=== PATIENT | male | born 1970 | race Caucasian/White ===

== ENCOUNTER 2017-02-21 21:48 | Observation (INO) | payer OTHER, MEDICARE ==
--- NOTE | 2017-02-21 22:11 | ED ---
General Adult HPI - General Chief complaint: Extremity Injury, Upper Stated complaint: smashed finger Time Seen by Provider: 02/21/17 22:03 Source: patient, family, RN notes reviewed Mode of arrival: ambulatory Limitations: no limitations - History of Present Illness Initial comments: 47-year-old male presenting for left middle finger injury. Patient states he was cutting an exhaust pipe while working on his friend's car when it fell and smashed his finger upward between the newly cut end of the pipe and a hard piece of metal. He states he sustained a cut/crush injury to the tip of his left middle finger. States tetanus is up to date. Denies other injury. He does state history of a heart condition. He denies any chest pain or shortness of breath. - Related Data Home Medications Medication Instructions Recorded Confirmed Omeprazole [PriLOSEC] 20 mg PO AC-BRKFST 07/07/16 02/21/17 Lisinopril 40 mg PO DAILY 02/21/17 02/21/17 Allergies Allergy/AdvReac Type Severity Reaction Status Date / Time Penicillins Allergy Anaphylaxis Verified 02/21/17 22:06 Review of Systems ROS Statement: Those systems with pertinent positive or pertinent negative responses have been documented in the HPI. ROS Other: All systems not noted in ROS Statement are negative. Past Medical History Past Medical History: Hypertension History of Any Multi-Drug Resistant Organisms: None Reported Additional Past Surgical History / Comment(s): open heart x 6 Past Psychological History: No Psychological Hx Reported Smoking Status: Former smoker Past Alcohol Use History: None Reported Past Drug Use History: None Reported General Exam - General Exam Comments Initial Comments: General: Awake and Alert. No acute distress. Does not appear acutely ill. Eyes: SETH. No scleral icterus. HENT: Atraumatic, normocephalic. Mucous membranes moist. Neck: No JVD. Trachea midline. Cardiovascular: Regular rate and rhythm. No murmur, rub, or gallop is appreciated. Distal pulses intact. Respiratory: Lungs are clear to auscultation bilaterally. No wheezes, rales, rhonchi. No respiratory distress. Gastrointestinal: Soft, Nontender. Nondistended. Musculoskeletal: Left third distal phalanx with nail bed avulsion. There is laceration below the nail bed as well as on the palmar aspect of the distal phalanx. There is significant soft tissue edema associated with it. Does appear to have good extension and flexion and strength intact in this digit. Neurological: A&Ox3. There are no obvious motor or sensory deficits. Coordination appears grossly intact. Speech is normal. Skin: Skin is warm and dry. Laceration to the left third distal phalanx. Psychiatric: Cooperative, appropriate mood & affect, normal judgment. Limitations: no limitations Course Vital Signs 02/21/17 21:57 Temperature 98.7 F Pulse Rate 70 Respiratory 18 Rate Blood Pressure 153/70 O2 Sat by Pulse 98 Oximetry Procedures - Nerve Block Consent Obtained: verbal consent Time Out Performed: Yes Local Anesthetic Used: Lidocaine 1% Amount of anesthesia used: 5 Side: left Nerve Blocks: digital Procedure Successful: Yes Complications: none Patient Tolerated Procedure: well Medical Decision Making - Medical Decision Making 47-year-old male presenting for left third digit injury. Patient with significant crush injury and laceration to the distal phalanx. There is complete proximal avulsion of the nail bed. Pt initially declined pain medication. Digital block was performed with irrigation and superficial exploration. It appears that the proximal nailbed is obliterated secondary injury. X-ray imaging with evidence of open fracture and small metallic FBs retained. Patient was given a dose of gentamicin secondary to penicillin ALLERGY. I called and spoke with BRIDGET Gill for [facility]. He reviewed imaging and spoke with Dr. Biggs. Recommends admission to their service for surgical evaluation and possible partial proximal amputation in the morning. I discussed this with the patient and , they are are agreeable to this. - Radiology Data Radiology results: report reviewed, image reviewed Disposition Clinical Impression: Open fracture proximal phalanx finger, Nailbed avulsion, Metal foreign body in hand Disposition: ADMITTED IP TO THIS HOSP Condition: Stable Referrals: Nancy Benson DO [Primary Care Provider] - 1-2 days Decision to Admit Reason: Admit from EC
--- NOTE | 2017-02-21 22:42 | XR ---
EXAM: XR Left Hand Complete, 3 or More Views CLINICAL HISTORY: Reason: Pain TECHNIQUE: Frontal, lateral and oblique views of the left hand. COMPARISON: No relevant prior studies available. FINDINGS: Bones/joints: Comminuted tuft fracture of the third phalanx. Soft tissues: Retained radiopaque foreign bodies are seen with the largest measuring up to 3 mm. IMPRESSION: 1. Comminuted tuft fracture of the third phalanx. 2. Retained radiopaque foreign bodies are seen with the largest measuring up to 3 mm.
[2017-02-21] MEDS ORDERED: GENTAMICIN 160 MG in SODIUM CHLORIDE 0.9% 100 ML IVPB STA (23:32)
[2017-02-22] MEDS ORDERED: NALOXONE 0.4 MG/ML 1 ML VIAL IV PRN (00:13)
[2017-02-22] MEDS ORDERED: ACETAMINOPHEN TAB 325 MG TAB PO PRN (00:13)
[2017-02-22] MEDS ORDERED: MORPHINE SULFATE 4 MG/ML SYRINGE IV PRN (00:13)
[2017-02-22] MEDS ORDERED: ONDANSETRON 4 MG/2 ML VIAL IVP PRN (00:13)
[2017-02-22] MEDS: LACTATED RINGERS 1,000 ML IV SCH ×3 (01:36→12:45)
--- NOTE | 2017-02-22 09:39 | P.HPOR ---
History of Present Illness H&P Date: 02/22/17 Chief Complaint: Laceration/partial amputation distal phalanx left middle finger This is a 47-year-old male who was seen and evaluated in the emergency room and [facility] late last night. Patient had a injury to the left middle finger while working on a car exhaust pipe. Patient was cutting exhaust pipe when it fell, and smashed the left middle finger. Patient reported immediately to the emergency room. The ER physician further evaluate the laceration after digital block, he noted multiple lacerations, including the nailbed and also a avulsion of the nail itself. I was contacted by him last night and was able to review the case and images. I was able to further discuss the case in maintaining Dr. Biggs and review images. He was admitted under our orthopedic care with plan of a irrigation and debridement along with revision amputation of the distal phalanx of the left little finger on the morning of 02/22/2017. Patient was seen and evaluated today at bedside, Dr. Biggs was present. Patient's finger was heavily bandaged. He noted discomfort throughout the distal end with any kind of pressure. He denies any other discomfort of the left upper extremity, this including hand, wrist, elbow. Patient has no previous orthopedic surgery involving the left upper extremity. He does note a previous history of multiple open heart surgeries, he states roughly 6. Patient denies any chest pain, shortness of breath, lightheadedness, headaches, abdominal discomfort, nausea vomiting, fever chills. 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 Past Anesthesia/Blood Transfusion Reactions: No Reported Reaction Past Psychological History: No Psychological Hx Reported Smoking Status: Never smoker Past Alcohol Use History: None Reported Past Drug Use History: None Reported Medications and Allergies Home Medications Medication Instructions Recorded Confirmed Type Omeprazole [PriLOSEC] 20 mg PO AC-BRKFST 07/07/16 02/21/17 History Lisinopril 40 mg PO DAILY 02/21/17 02/21/17 History Allergies Allergy/AdvReac Type Severity Reaction Status Date / Time Penicillins Allergy Anaphylaxis Verified 06/13/17 22:06 Physical Examination Left upper extremity: Bulky bandage is present around the left middle finger, this was not removed today at bedside According to the emergency room physician notes, there are a few different lacerations on the palmar aspect of the left middle finger, and then the biggest of the lacerations extending from more the proximal nail bed. He noted areas of macerated skin and some edematous tissue, the nail was still present but avulsed dorsally. He is able to move the remaining fingers, he is able to extend and flex at the wrist. His sensory exam to light touch throughout that extremity is intact, sensory exam was not checked involving the left middle finger. Cap refill of the remaining fingers with less than 2 seconds. Results - Diagnostic results Wrist/Hand x-ray: report reviewed, image reviewed Assessment and Plan Plan: Imaging: Multiple views of the left hand were taken. Images to demonstrate a comminuted distal phalanx fracture I can appreciate the avulsion of the nail on x-ray. There is a metallic visualized more on the dorsal aspect of the left little finger Assessment: 1. Left distal middle phalanx fracture with laceration and partial amputation 2. Status post crush injury Plan: 1. We discussed with the patient today at bedside that surgical intervention would be needed for further evaluation and treatment. Plan is to proceed with a irrigation and debridement along with revision amputation of the left little finger this morning. Risk and benefits of the procedure were discussed, we will obtain consent. 2. Discussed with patient the likely need for a few days of IV antibiotics in the hospital with likely discharged home on oral medications. 3. Patient was made nothing by mouth last night 4. Pain control, will utilize oral and IV medications as needed 5. Further recommendations to follow after surgery Time with Patient: Less than 30
[2017-02-22] MEDS ORDERED: IV FLUID CONTINUATION 125 ML IV ONE (10:32)
[2017-02-22] MEDS ORDERED: ceFAZolin 2 GM in SODIUM CHLORIDE 0.9% 100 ML IVPB STA (12:25)
[2017-02-22] MEDS ORDERED: LIDOCAINE 1% INJ 10MG/ML (20 ML MDV) ONE (12:45)
[2017-02-22] MEDS ORDERED: PROPOFOL 10 MG/ML 20 ML VIAL IV ONE (12:45)
[2017-02-22] MEDS ORDERED: fentaNYL (PF) 50 MCG/ML 50 ML VIAL ONE (12:45)
[2017-02-22] MEDS ORDERED: MIDAZOLAM 2 MG/2 ML VIAL ONE (12:45)
[2017-02-22] MEDS ORDERED: BUPIVACAINE (PF) 0.25% 30 ML VIAL SQ ONE ×2 (13:07→13:18)
[2017-02-22] MEDS ORDERED: BACITRACIN OINT 1 EACH PACKET TOPICAL ONE (13:11)
--- NOTE | 2017-02-22 13:34 | P.OP ---
Date of Procedure: 02/22/17 Preoperative Diagnosis: Crush injury left middle finger distal phalanx area Postoperative Diagnosis: 1. Crush injury distal phalanx left middle finger 2. 2 cm skin laceration left middle finger 3. 1.5 cm nail bed laceration left middle finger 4. fracture distal tip distal phalanx left middle finger Procedure(s) Performed: 1. Irrigation debridement left middle finger wound 2. Debridement distal phalanx fracture fragments left middle finger 3. Repair 1.5 cm nail bed laceration left middle finger 4. Repair 2 cm skin laceration left middle finger Implants: Anesthesia: DAKOTAA, local Surgeon: Ravin Biggs Theatre Professor #1: Obey Johnson Estimated Blood Loss (ml): 10 Pathology: none sent Condition: stable Disposition: PACU Indications for Procedure: 47-year-old patient seen with crush injury distal tip left middle finger. I recommended irrigation debridement and repair. Patient was agreeable and consent was obtained. Operative Findings: See description of procedure Description of Procedure: The patient was taken to the operative suite. The patient underwent a general anesthetic by the department of anesthesia. Well-padded tourniquet placed left upper extremity. Patient received preoperative IV antibiotics. The left upper extremity was prepped and draped in the normal sterile orthopedic fashion. We began exploring the left middle finger distal tip wound. It was lacerated dorsally through the base of the nailbed matrix area avulsing the nailbed partially causing a 1.5 cm nailbed laceration. There was exposed bone distally with small fragments of the distal phalanx visible. These were removed without difficulty. There was a 1 cm skin laceration both on the radial side and ulnar side. At this point I debrided out any abnormal looking tissue. A little bit of running during was done just the tip of the bone to smooth that out. The wound was irrigated with copious normal saline. All abnormal tissue had been successfully removed. The residual nail was removed without difficulty. We again irrigated the wound. I repaired the nailbed laceration with 3-0 Vicryl. I repaired the skin laceration with 3-0 nylon. We were we cleaned and replaced the nail into the germinal matrix. Sterile antibiotic ointment and dressings were applied. I performed a digital block with 10 mL quarter percent plain Marcaine. Sterile dressings were applied. The patient was awakened having tolerated the procedure well. No tourniquet had been utilized. Jairo GILL assisted with the procedure.
--- NOTE | 2017-02-22 13:35 | P.DS ---
Providers Date of admission: 02/22/17 00:13 Expected date of discharge: 02/22/17 Attending physician: Ravin Biggs Primary care physician: Nancy Kelley [facility] Course: Date of admission: 02/21/2017 Date of discharge: 02/22/2017 Admission diagnosis: Left middle finger open distal phalanx fracture, nail bed laceration, skin laceration Discharge diagnosis: Status post left middle finger nail bed laceration repair and skin laceration repair Attending physician: Dr. Biggs Surgical procedures: Left middle finger nail bed laceration repair and skin laceration repair Brief history: Patient is a 47-year-old who was brought to [facility] emergency room on 02/21/2017 after sustaining an injury while working on a car exhaust. The exhaust pipe smashed the left middle finger causing a nail avulsion and laceration. After being in the metacarpal and emergency room, I was contacted by the physician and we discussed the case. With the severity of the laceration and involvement of the nailbed and likely communication to the bone and we decided to board the patient for an irrigation and debridement along with laceration repair for the morning of 02/22/2017. Hospital course: Details of patient's surgery can be found in operative report. Patient tolerated the procedure well and was subsequently transported to orthopedic floor. Patient's orthopeidc and medical care was provided daily. Patient had daily laboratory tests performed for evaluation of overall blood counts. Patient was noted to have a relatively uneventful postoperative course. Patient reported satisfactory pain control with oral pain medications by postoperative day 0. Patient showed satisfactory progress with physical therapy. Patient moved steadily through the program and had no difficulty meeting the goals by postoperative day 0. Given patient's otherwise satisfactory course and having met physical therapy goals, plan is to discharge patient home on postoperative day 0. Discharge condition/disposition: Patient will be discharged home in stable condition. Discharge medications: Instructions are given on resumption of patient's normal daily medications per primary care recommendation, in addition patient will be prescribed [place] 7.5 mg/325 mg, Keflex 500 mg. Discharge instructions: 1. Do not remove the bandage on the left middle finger. This will be removed at your first postop visit. Please keep the bandage clean and dry, keep covered while showering. 2. Pain meds per prescription. 3. Pain medication has potential to cause constipation. Increase oral fluid and fiber intake. Contact primary care provider if you have not had a bowel movement within 48 hours after discharge 4. Follow up in office at 2 weeks postop with Jairo Johnson PA-C 5. Follow up with your primary care doctor 7-10 days after discharge. 6. Contact [facility] with any questions, . Procedures: Left middle finger nailbed repair, skin laceration repair Patient Condition at Discharge: Good Plan - Discharge Summary New Discharge Prescriptions: New HYDROcodone/APAP 7.5-325MG [[place] 7.5] 1 each PO Q6HR PRN #40 tab PRN Reason: Pain Cephalexin [Keflex] 500 mg PO Q8HR #30 cap No Action Omeprazole [PriLOSEC] 20 mg PO AC-BRKFST Lisinopril 40 mg PO DAILY Discharge Medication List Omeprazole [PriLOSEC] 20 mg PO AC-BRKFST 07/07/16 [History] Lisinopril 40 mg PO DAILY 02/21/17 [History] Cephalexin [Keflex] 500 mg PO Q8HR #30 cap 02/22/17 [Rx] HYDROcodone/APAP 7.5-325MG [[place] 7.5] 1 each PO Q6HR PRN #40 tab 02/22/17 [Rx] Follow up Appointment(s)/Referral(s): Nancy Benson DO [Primary Care Provider] - 1-2 days Obey Johnson PAC [PHYSICIAN DIETARY DIRECTOR] - 2 Weeks Activity/Diet/Wound Care/Special Instructions: Orthopedic discharge instructions: 1. Do not remove bandage until seen at postoperative visit 2. Keep bandage clean and dry, keep covered while showering 3. Pain medication as needed 4. Oral antibiotics as instructed via the prescription 5. Follow-up at [facility] in 2 weeks Discharge Disposition: HOME SELF-CARE
[2017-02-22 13:38] VITALS: TEMP 97.2
[2017-02-22 13:56] VITALS: BP 133/63; PULSE 61; RESP 16
== END 2017-02-22 15:43 | disposition home or self-care (01) ==
LOC: EC 21:48 → 3SUR 02-22 00:13
PROVIDERS: ADMIT Orthopaedic Surgery; ATTEND Orthopaedic Surgery
DX: S67.193A Crushing injury of left middle finger, initial encounter (principal); S61.313A Laceration without foreign body of left middle finger with damage to nail, initial encounter; I10 Essential (primary) hypertension; Z79.899 Other long term (current) drug therapy; Z88.0 Allergy status to penicillin; Z87.891 Personal history of nicotine dependence; V88.8XXA Person injured in other specified noncollision transport accidents involving motor vehicle, nontraffic, initial encounter; Y92.414 Local residential or business street as the place of occurrence of the external cause; Y93.H3 Activity, building and construction
CPT/HCPCS: 99284 ×3; 11012; 11760; 12001; 96365 ×2; 64450 ×2; 73130; G0378; J2250; J1580; J3010; J0690; J2405; J2001; J2704; 96375